=== PATIENT | male | born 1980 | race Caucasian/White ===

== ENCOUNTER → 2017-01-16 | Outpatient (CLI) | payer BC ==
--- NOTE | 2017-01-16 09:05 | US ---
EXAMINATION TYPE: US abdomen complete DATE OF EXAM: 01/16/2017 COMPARISON: US, NM, CT CLINICAL HISTORY: R10.9 Abd pain. Pt states ABD pain EXAM MEASUREMENTS: Liver Length: 17.6 cm Gallbladder Wall: 0.2 cm CBD: 0.3 cm Spleen: 9.5 cm Right Kidney: 10.4 x 4.7 x 5.0 cm Left Kidney: 11.2 x 5.3 x 5.7 cm Large pt body habitus Pancreas: Obscured by bowel gas Liver: Enlarged, heterogeneous, difficult to penetrate. Findings most compatible with hepatic steato sis, which limits evaluation for underlying hepatic masses. Gallbladder: wnl Evidence for sonographic Davis's sign: No CBD: wnl Spleen: Multiple granulomas visualized Right Kidney: wnl, lower pole gassed out Left Kidney: wnl Upper IVC: wnl Abd Aorta: Prox and Mid portions obscured by overlying bowel gas, distal portion appeared wnl IMPRESSION: 1. No sonographic evidence of cholelithiasis or cholecystitis. 2. Findings most compatible with hepatic steatosis. 3. Benign splenic granulomas.
== END | disposition home or self-care (01) ==
LOC: RADUSWWP 08:01
PROVIDERS: ATTEND Family Medicine
DX: D73.89 Other diseases of spleen (principal); R10.9 Unspecified abdominal pain
CPT/HCPCS: 76700

== ENCOUNTER → 2019-07-21 | Outpatient (CLI) | payer BC ==
--- NOTE | 2019-07-21 11:29 | EST ---
EXERCISE STRESS AGE: 39 SEX: M HT: 67 inches WT: 265 lbs. PROTOCOL: Cr STAGE: 3 DURATION OF EXERCISE: 8:00 HEART RATE REST: 130 BLOOD PRESSURE REST: 110/34 MAXIMUM HEART RATE ACHIEVED: 171 MAXIMUM BLOOD PRESSURE: 207/74 85% MPHR: 152 100% MPHR: 179 METS: 9.0 INDICATIONS: Palpitations. CLINICAL INFORMATION: Baseline EKG shows sinus tachycardia with a heart rate around 130 beats per minute with poor R-wave progression suggestive of prior anteroseptal infarct. The patient exercised on Cr protocol for a total of 8 minutes achieving 9 METS, 96% of predicted maximal heart rate without chest pain or diagnostic ST segment depression. CONCLUSION: 1. Above-average exercise tolerance. 2. Inconclusive. 3. Negative stress test by EKG criteria. 4. Sinus tachycardia on the baseline EKG. MMODL / IJN: [id number] /
--- NOTE | 2019-07-24 17:01 | ECHOF ---
Referral Reason:[id number] Fatigue MEASUREMENTS -------- HEIGHT: 170.2 cm WEIGHT: 120.2 kg BP: IVSd: 1.8 cm (0.6 - 1.1) LVIDd: 3.3 cm (3.9 - 5.3) LVPWd: 1.9 cm (0.6 - 1.1) IVSs: 2.6 cm LVIDs: 2.4 cm LVPWs: 2.2 cm LAESV Index (A-L): 32.24 ml/m Ao Diam: 3.7 cm (2.0 - 3.7) AV Cusp: 1.9 cm (1.5 - 2.6) AV maxP.11 mmHg AV meanP.95 mmHg RAP: 5.00 mmHg RVSP: 61.27 mmHg FINDINGS -------- Resting tachycardia (HR>100bpm). This was a technically adequate study. The left ventricular size is normal. There is moderate concentric left ventricular hypertrophy. O verall left ventricular systolic function is low-normal with, an EF between 50 - 55 %. LVOT Obstruc tion The right ventricle is normal in size. LA is midly dilated 29-33ml/m2. The right atrium was not well visualized. Interatrial and interventricular septum intact. The aortic valve was not well visualized. There is no evidence of aortic regurgitation. Peak/mean gradient across the Aortic Valve is 178.11mmHg / 103.95mmHg. Mild mitral regurgitation is present. Moderate to severe tricuspid regurgitation present. There is moderate to severe pulmonary hypertens ion. The right ventricular systolic pressure, as measured by Doppler, is 61.27mmHg. There is no pulmonic regurgitation present. The aortic root size is normal. IVC Not well visulized. There is no pericardial effusion. CONCLUSIONS -------- 1. Resting tachycardia (HR>100bpm). 2. This was a technically adequate study. 3. The left ventricular size is normal. 4. There is moderate concentric left ventricular hypertrophy. 5. Overall left ventricular systolic function is low-normal with, an EF between 50 - 55 %. 6. LVOT Obstruction 7. The right ventricle is normal in size. 8. LA is midly dilated 29-33ml/m2. 9. The right atrium was not well visualized. 10. Interatrial and interventricular septum intact. 11. The aortic valve was not well visualized. 12. There is no evidence of aortic regurgitation. 13. Peak/mean gradient across the Aortic Valve is 178.11mmHg / 103.95mmHg. 14. Mild mitral regurgitation is present. 15. Moderate to severe tricuspid regurgitation present. 16. There is moderate to severe pulmonary hypertension. 17. The right ventricular systolic pressure, as measured by Doppler, is 61.27mmHg. 18. There is no pulmonic regurgitation present. 19. The aortic root size is normal. 20. IVC Not well visulized. 21. There is no pericardial effusion. [employer] ADVISOR: Trudi Zhang RDCS
== END | disposition home or self-care (01) ==
LOC: RADECHMAIN 08:17
PROVIDERS: ATTEND Family Medicine
DX: I08.1 Rheumatic disorders of both mitral and tricuspid valves (principal); I27.20 Pulmonary hypertension, unspecified; I25.10 Atherosclerotic heart disease of native coronary artery without angina pectoris; R00.0 Tachycardia, unspecified
CPT/HCPCS: 93017; 93306

== ENCOUNTER → 2019-08-07 | Outpatient (CLI) | payer BC | LOC: LABWHC1 13:10 | PROVIDERS: ATTEND Internal Medicine Interventional Cardiology | DX: Z03.818 Encounter for observation for suspected exposure to other biological agents ruled out (principal) | CPT/HCPCS: 87635 ==

== ENCOUNTER → 2019-08-10 | Day surgery (SDC) | payer BC ==
[2019-08-07 14:21] VITALS: BMI 40.7
[~2019-08-10] MED LIST: BENZOCAINE SPRAY 1 CAN TOPICAL ONE; MIDAZOLAM 2 MG/2 ML VIAL IVP ONE; SODIUM CHLORIDE 0.9% 500 ML 500 ML IV ONE; fentaNYL (PF) 50 MCG/ML 2 ML AMP IVP ONE; fentaNYL (PF) 50 MCG/ML 2 ML AMP ONE
[2019-08-10 08:36] VITALS: TEMP 98.5
[2019-08-10 09:09] VITALS: RESP 16
--- NOTE | 2019-08-10 09:33 | P.PCN ---
Date of Procedure: 08/10/19 Operative Findings: TRANSESOPHAGEAL ECHOCARDIOGRAM CAMPUS POLICE OFFICER: MAICOL COTTRELL MD, RPVI INDICATION: This is a very pleasant 39-year-old gentleman who was found to have a heart murmur recently on physical examination. An echocardiogram was performed and revealed possible aortic stenosis. There was concern regarding hypertrophic obstructive cardiomyopathy and LVOT obstruction and because of that the patient was brought today to undergo a LEEANN to rule out aortic valve stenosis. SEDATION: Conscious sedation COMPLICATION: None PROCEDURE DESCRIPTION: After obtaining an informed consent, the patient was brought to transesophageal echocardiogram room. Pulse oximetry and heart monitors were attached to the patient. The patient throat was sprayed using lidocaine. The patient was turned into left lateral position. After that a bite guard was placed. After an appropriate conscious sedation was initiated, the transesophageal echocardiogram was advanced through a bite guard into the mid esophagus. A 2-D echocardiogram images, color Doppler images, continuous wave images, pulse-wave images, of various cardiac structure were performed. After that the transesophageal echocardiogram probe was advanced into the stomach and fixed to obtain transgastric view was. The probe was brought into the mid esophagus. Inter-atrial septum was interrogated using 2D images, color Doppler images, and then contrast study. After that transesophageal echocardiogram was withdrawn out and upon withdrawing the descending thoracic aorta all the way up to the arch was evaluated. FINDING: The left ventricular dimension and systolic function appeared to be within normal limits. Ejection fraction appears to be in the range of 50-55%. There is basal septal hypertrophy was identified with a thickness of the septum at that area of 2.5 cm. The right ventricle appeared to be at normal size and function. The left atrium appears to be mildly dilated. The interatrial septum appeared to be intact without any evidence of shunt. The left atrial appendage appeared to be intact as well. The aortic valve appears to be trileaflet valve without stenosis and without regurgitation. There was turbulence flow across aortic valve which was induced by the LVOT obstruction. The mitral valve appears to be thickened with evidence of systolic anterior motion of the anterior mitral leaflet and evidence of moderate mitral regurgitation. There is at least moderate tricuspid regurgitation seen. The pulmonary artery systolic pressure was not calculated. There is significant gradient across the LVOT with a gradient of 180 mmHg. CONCLUSION: 1. Normal left ventricular dimension and systolic function. 2. 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 Systolic anterior motion (ANGELA) of the anterior mitral leaflet with moderate mitral regurgitation at least 4. Trileaflet aortic valve without stenosis or regurgitation 5. Moderate tricuspid regurgitation. The RVSP was not calculated 6. Normal aortic root dimension POSTPROCEDURE MANAGEMENT: The patient will be sent for evaluation of septal myomectomy
[2019-08-10 10:16] VITALS: BP 154/81; PULSE 93
== END ==
LOC: CATHCVL 08:12
PROVIDERS: ATTEND Internal Medicine Interventional Cardiology
DX: I08.1 Rheumatic disorders of both mitral and tricuspid valves (principal); R01.1 Cardiac murmur, unspecified; I42.2 Other hypertrophic cardiomyopathy; I10 Essential (primary) hypertension; E78.5 Hyperlipidemia, unspecified; R94.39 Abnormal result of other cardiovascular function study; R93.1 Abnormal findings on diagnostic imaging of heart and coronary circulation; F17.210 Nicotine dependence, cigarettes, uncomplicated; Z79.899 Other long term (current) drug therapy; Z88.0 Allergy status to penicillin
CPT/HCPCS: 93312; 93320; 93325; J2250; J3010